=== PATIENT | female | born 1995 | race American Indian/Alaskan Native ===

== ENCOUNTER 2021-10-26 09:58 | Emergency (ER) | payer MEDICAID ==
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
[2021-10-26 12:42] VITALS: BP 111/69
== END 2021-10-26 12:40 | disposition home or self-care (01) ==
LOC: ED 09:58
DX: M79.661 Pain in right lower leg (principal); M79.662 Pain in left lower leg; V89.2XXA Person injured in unspecified motor-vehicle accident, traffic, initial encounter; Y93.89 Activity, other specified; Y92.488 Other paved roadways as the place of occurrence of the external cause; Y99.8 Other external cause status
CPT/HCPCS: 99282